=== PATIENT | female | born 1950 | race Caucasian/White ===

== ENCOUNTER 2016-09-10 16:20 | Emergency (ER) | payer MEDICARE, OTHER ==
[~2016-09-10] VITALS: Ht 165.1 cm; Wt 82.1 kg
[2016-09-10 16:45] VITALS: BP 163/100
[2016-09-10] MEDS ORDERED: HYDROmorphone 2 MG/ML (DILAUDID) 1 ML SYRINGE IM ONE (17:00)
[2016-09-10] MEDS ORDERED: ONDANSETRON 4 MG (ZOFRAN) ORAL DISSOLVE TAB PO ONE (17:00)
--- NOTE | 2016-09-10 17:48 | NUR ---
DR GÓMEZ IN [place] PAGED TO SPEAK WITH DR GARCIA
[2016-09-10] MEDS ORDERED: ED- HYDROcodone/ACETAMINOPHEN 5MG/325MG (NORCO) 6 TABLETS/BTL PO ONE (18:10)
== END 2016-09-10 18:30 | disposition home or self-care (01) ==
LOC: ED 16:30
DX: S52.511A Displaced fracture of right radial styloid process, initial encounter for closed fracture (principal); S52.501A Unspecified fracture of the lower end of right radius, initial encounter for closed fracture; W01.0XXA Fall on same level from slipping, tripping and stumbling without subsequent striking against object, initial encounter; Y92.009 Unspecified place in unspecified non-institutional (private) residence as the place of occurrence of the external cause
CPT/HCPCS: 29125; 73110; 96372; 99283; A9270; J1170